=== PATIENT | female | born 2000 | race Caucasian/White ===

== ENCOUNTER → 2020-03-07 | Outpatient (CLI) | payer BC ==
--- NOTE | 2020-03-07 16:11 | Diagnostic Imaging Report ---
INDICATION: Postop surveillance, status post femoral osteotomy. COMPARISON: None available. TECHNIQUE: AP and lateral views of the left femur are obtained. FINDINGS: There is a long intramedullary nail with both proximal and distal interlocking screws in place. These fixate the transversely oriented osteotomy in the proximal one-third of the femoral diaphysis that is near-anatomic in alignment. There is a small amount of interosseous bridging periosteal callus formation present. The left hip and knee are grossly normal. IMPRESSION: Early healing of the femoral osteotomy site. Dictated by: Dictated on workstation # [id number]
== END ==
LOC: RAD 10:53
PROVIDERS: ATTEND Nurse Practitioner Family
DX: M21.851 Other specified acquired deformities of right thigh (principal)
CPT/HCPCS: 73552

== ENCOUNTER → 2020-04-18 | Outpatient (CLI) | payer BC ==
--- NOTE | 2020-04-18 12:55 | Diagnostic Imaging Report ---
INDICATION: Left femoral problems, pain. COMPARISON: Imaging from the same date as well as from March 07, 2020. TECHNIQUE: Two radiographs of the left hip dated April 18, 2020. FINDINGS: Intramedullary jovani is partially visualized transfixing a healing midshaft femoral fracture. No evidence of hardware complication within the [id number]. No new fracture or dislocation. No destructive osseous process. No suspicious radiopaque foreign body. IMPRESSION: No acute osseous abnormality. Intramedullary jovani is again identified partially visualized transfixing a healing left femoral fracture. Dictated by: Dictated on workstation # [id number]
--- NOTE | 2020-04-18 13:04 | Diagnostic Imaging Report ---
INDICATION: Osteotomy, post surgical followup. COMPARISON: Imaging from the same date as well as from 03/07/2020. TECHNIQUE: Four radiographs of the left femur dated 04/18/2020. FINDINGS: An intramedullary jovani is again noted transfixing a transversely oriented osteotomy involving the proximal to mid left femoral shaft. Alignment is stable from the prior examination. No evidence of hardware complication. Developing osseous bridging is noted. No new fracture or dislocation. No destructive osseous process. No suspicious radiopaque foreign body. IMPRESSION: Continued interval healing of previously noted internally fixated osteotomy site involving the left femur without evidence of hardware complication or new acute osseous abnormality. Dictated by: Dictated on workstation # [id number]
== END ==
LOC: RAD 11:44
PROVIDERS: ATTEND Family Medicine
DX: M79.652 Pain in left thigh (principal)
CPT/HCPCS: 73502; 73552

== ENCOUNTER → 2020-09-12 | Outpatient (CLI) | payer BC ==
--- NOTE | 2020-09-12 18:01 | Diagnostic Imaging Report ---
EXAMINATION: Left femur 2 or more views HISTORY: Post hip arthroscopy COMPARISON: 04/29/2020 FINDINGS: There is left femur intramedullary nail with a healed fracture of the midshaft of the left femur. Left hip joint space is normal. No new fracture is seen. IMPRESSION: 1. Healed fracture of the left midshaft femur with an intramedullary nail present. Dictated by: Dictated on workstation # [id number]
== END ==
LOC: RAD 10:02
PROVIDERS: ATTEND Orthopaedic Surgery Pediatric Orthopaedic Surgery
DX: Z47.2 Encounter for removal of internal fixation device (principal); Z98.890 Other specified postprocedural states
CPT/HCPCS: 73552

== ENCOUNTER 2020-10-22 22:08 | Emergency (ER) | payer BC ==
[~2020-10-22] VITALS: Ht 182 cm; Wt 66.0 kg
--- OUTSIDE RECORDS SUMMARY | 2020-10-22 22:12 | XMS REPORT | CCD ---
Author Belkys White Organization Shanell Brizuela MD, [facility] Address [facility] [place] [address] Phone Care Team Providers Care Title Agent Name Role Phone Shanell Brizuela PP Unavailable CCM Unavailable Summary Purpose Interface Exchange Insurance Providers Payer name Policy type / Coverage type Covered libertarian ID Effective Begin Date Effective End Date Blue Cross Blue [facility] Blue Cross/Blue [facility] [id number] Unknown Unknown Family history Father Diagnosis Age At Onset No Known Diseases N/A Mother Diagnosis Age At Onset No Known Diseases N/A Social History Social History Element Codes Description Effective Dates Marital status Unknown Single 03/07/2020 Employment Unknown Student 03/07/[address]: 153489995 Never smoker 03/07/[address]: 811513040 Never drinks alcohol 2020 Allergies, Adverse Reactions, Alerts Substance Reaction Codes Entered Date Inactivated Date Status amoxicillin Unknown 03/07/2020 No Inactive Date Active * OTHER REACTION - SEE ANSWER BOX Oxycodone- rash Unknown 02/11 No Inactive Date Active Problems Condition Codes Effective Dates Condition Status Acne vulgaris ICD-10: L70.0 ICD-9: 706.1 08/24/2020 Active Dizziness ICD-10: R42 ICD-9: 780.4 07/03/2020 Active Encounter for general adult medical examination withou t abnormal findings ICD- 10: Z00.00 ICD-9: V70.0 07/03/2020 Active Menorrhagia with irregular cycle ICD-10: N92.1 ICD-9: 626.2 03/07/2020 Active Left hip pain ICD-10: M25.552 ICD-9: 719.45 03/07/2020 Active S/P hip arthroscopy ICD-10: Z98.890 ICD-9: V45.89 03/07/2020 Active Right hip pain ICD-10: M25.551 ICD-9: 719.45 03/07/2020 Active Medications Medication Codes Instructions Start Date Stop Date Status Fill Instructions clindamycin 1 % topical gel RxNorm: 489759 Apply 1 Appl ication Topical two times a day 08/24/2020 02/19/2021 Active doxycycline hyclate 100 mg tablet RxNorm: 5007228 Take 1 Tablet(s) Oral two times a day 08/24/2020 09/22/2020 Active Ativan 0.5 mg tablet RxNorm: 757512 1 Tablet(s) Oral as directe d for MRI 04/28/2020 04/29/2020 Inactive Loestrin Fe 1/20 (28-Day) 1 mg-20 mcg (21)/75 mg (7) tablet RxNorm: 5366485 1 Tablet(s) Oral every day 03/20/2020 05/14/2021 Active Loestrin Fe 1/20 (28-Day) 1 mg-20 mcg (21)/75 mg (7) tablet RxNorm: 1466822 1 Tablet(s) Oral every day 03/07/2020 03/19/2020 Inactive Medication Administered No Medication Administered data Immunizations No Immunization data Results Observation Observation Code Item Item Code Result Date [facility] Tsh Ord6 TSH (3rd IS) 1.40 uIU/mL 07/03/2020 Unkn own Comp Metabolic Pos426 NA 139 mEq/L 07/03/2020 Unkn own Comp Metabolic Ptg071 K 4.0 mEq/L 07/03/2020 Unkn own Comp Metabolic Ubp851 CL 104 mEq/L 07/03/2020 Unkn own Comp Metabolic Krw418 CO2 30.0 mEq/L 07/03/2020 Unk nown Comp Metabolic Ugy179 ANION GAP 9 07/03/2020 Unkn own Comp Metabolic Wog445 GLUCOSE 75 mg/dL 07/03/2020 Unkn own Comp Metabolic Mmv694 Creat 0.7 mg/dL 07/03/2020 Unkn own Comp Metabolic Dan800 eGFR 112 ml/min/1.73m2 021 Unknown Comp Metabolic Pwn921 BUN 16 mg/dL 07/03/2020 Unkn own Comp Metabolic Clz712 B/C Ratio 22.5 Ratio 07/03/2020 Unk nown Comp Metabolic Pes585 CALCIUM 9.9 mg/dL 07/03/2020 Unkn own Comp Metabolic Ile978 ALK PHOS 91 U/L 07/03/2020 Unkn own Comp Metabolic Ldv224 AST(SGOT) 18 U/L 07/03/2020 Unkn own Comp Metabolic Ctf078 ALT(SGPT) 18 U/L 07/03/2020 Unkn own Comp Metabolic Ilz867 BILI T 0.6 mg/dL 07/03/2020 Unkn own Comp Metabolic Yyv747 ALBUMIN 4.9 g/dL 07/03/2020 Unkn own Comp Metabolic Pas602 TPRO 7.4 g/dL 07/03/2020 Unkn own Comp Metabolic Fpa067 GLOB 2.5 g/dL 07/03/2020 Unkn own Comp Metabolic Dtt802 A/G Ratio 1.9 Ratio 07/03/2020 Unkn own Comp Metabolic Ary506 Osmo 277 mOsmo 07/03/2020 Unkn own Cbc With Differential Ord2 WBC 6.55 K/ul 07/04/19 21 Unknown Cbc With Differential Ord2 RBC 4.72 M/ul 07/04/19 21 Unknown Cbc With Differential Ord2 HGB 14.5 g/dl 07/04/19 21 Unknown Cbc With Differential Ord2 Neut% 61.4 % 07/04/19 21 Unknown Cbc With Differential Ord2 HCT 45.2 % 07/04/19 21 Unknown Cbc With Differential Ord2 Lymph% 23.4 % 07/04/19 21 Unknown Cbc With Differential Ord2 MCV 95.8 fl 07/04/19 21 Unknown Cbc With Differential Ord2 MCH 30.7 pg 07/04/19 21 Unknown Cbc With Differential Ord2 Emmons% 11.5 % 07/04/19 21 Unknown Cbc With Differential Ord2 Eos% 3.1 % 07/04/19 21 Unknown Cbc With Differential Ord2 MCHC 32.1 pg 07/04/19 21 Unknown Cbc With Differential Ord2 PLT 295 K/ul 07/04/19 21 Unknown Cbc With Differential Ord2 Baso% 0.6 % 07/04/19 21 Unknown Cbc With Differential Ord2 RDW 13.5 % 07/04/19 21 Unknown Cbc With Differential Ord2 Neut ABS# 4.03 K/ul 07/04/19 21 Unknown Cbc With Differential Ord2 Lymph ABS# 1.53 K/ul 021 Unknown Cbc With Differential Ord2 Emmons ABS# 0.8 K/ul 07/04/19 21 Unknown Cbc With Differential Ord2 Eos ABS# 0.2 K/ul 07/04/19 21 Unknown Cbc With Differential Ord2 Baso ABS# 0.0 K/ul 07/04/19 21 Unknown Magnesium Ord90 Mag 2.0 mg/dL 07/03/2020 Unknown Procedures No Procedures data Vital Signs Date Vital 08/24/2020 Blood Pressure 1: 122/68 Code: 8480-6 BMI: 20.4 Code: 73525-4 Heart Rate 1: 70 bpm Height: 5'11" Code: 8302-2 SpO2: 98% Temperature: 36.3 (C) / 97.3 (F) Weight: 146 lbs Code: 35181-1 07/03/2020 Blood Pressure 1: 102/56 Code: 8480-6 BMI: 20.2 Code: 01587-5 Heart Rate 1: 74 bpm Height: 5'11" Code: 8302-2 SpO2: 99% Temperature: 36.3 (C) / 97.3 (F) Weight: 145 lbs Code: 97181-0 04/18/2020 Blood Pressure 1: 114/66 Code: 8480-6 Heart Rate 1: 82 bpm Height: 5'11" Code: 8302-2 Respiratory Rate: 18 bpm SpO2: 98% Temperature: 36 .3 (C) / 97.3 (F) Weight: Code: 06218-3 03/07/2020 Blood Pressure 1: 110/70 Code: 8480-6 BMI: 18.7 Code: 27245-3 Heart Rate 1: 87 bpm Height: 5'11" Code: 8302-2 SpO2: 98% Temperature: 36.9 (C) / 98.4 (F) Weight: 134 lbs Code: 95255-5 Functional Status No Functional Status data Reason For Visit Reason For Visit Effective Dates Notes acne vulgaris 08/24/2020 dizziness 07/03/2020 menstrual irregularity 04/18/2020 menstrual irregularity 03/07/2020 Encounters Encounter Performer Location Codes Date () EST. PATIENT, LEVEL III Diagnosis: Acne vulgaris[ICD10: L70.0] Marylu Brizuela [facility] CPT-4: 41365 08/24/2020 ([id number]) PREV VISIT EST AGE 18-39 Diagnosis: Encounter for general adult medical examination without abnormal findings[ICD10: Z00.00] [facility] CPT-4: 51370 07/03/2020 ([id number]) [id number] EST. PATIENT, LEVEL III Diagnosis: Left hip pain[ICD10: M25.552] Diagnosis: S/P hip arthroscopy[ICD10: Z98.890] [facility] CPT-4: 48384 04/18/2020 ([id number]) OFFICE VISIT, NEW - LEVEL 3 Diagnosis: S/P hip arthroscopy[ICD10: Z98.890] Diagnosis: Menorrhagia with irregular cycle[ICD10: N92.1] Diagnosis: Left hip pain[ICD10: M25.552] Diagnosis: Right hip pain[ICD10: M25.551] Marylu charles MD, [facility] CPT-4: 50957 03/07/2020 Plan of Care Planned Activity Notes Codes Status Date Visit Plan: Acne - discussed need for fa cial cleansing at least twice daily - avoid drying out skin, but need to clean off excessive oil and debris from skin, also recommended frequent pillow case changes, need to start on oral antibiotics as directed and call if any symptoms of GI upset or other concerns once on antibiotics. 08/24/2020 Patient Education: Patient Medication Summary Completed 08/24/2020 Visit Plan: Well Adult - pt was counsele d about diet, exercise, and encouraged to follow a heart healthy diet and increase activity level. The patient was instructed to RTC yearly for well adult exams and PRN for acute illnesses. The pt was also instructed to have yearly labs for check of cholesterol, thyroid, chem panel, CBC, and renal functioning. Pt has dizziness with movement from lying to sitting or sitting to standing - advised as follows: pepcid 20mg twice daily x 2 weeks 32 ounces of gatorade or powerade daily + at least another 60 ounces of water a day 07/03/2020 Appointment: Shanell Brizuela WPtel: [address] [place], [place] [phone] (15 min) Moderate 07/03/2020 Patient Education: Patient Medication Summary Completed 07/03/2020 Visit Plan: Left Hip Surgery Follow up- Left Hip Xray, send results to Dr. Ashby. Plan for right hip arthroscopy in 6 months. Continues physical therapy for 6 months at [facility]. Pt to use crutches until able to tolerate bearing weight on the left hip. Menorrhagia w/irregular cycles- improved with oral control. 04/18/2020 Patient Education: Patient Medication Summary Completed 04/18/2020 Visit Plan: Left Hip Surgery Follow up- Left Hip Xray, send results to Dr. Ashby. Plan for right hip arthroscopy in 6 months. Continues physical therapy for 6 months at [facility]. Pt to use crutches until able to tolerate bearing weight on the left hip. Menorrhagia w/irregular cycles- Start Loestrin Fe. Education provided on taking control at the same time each day, if dose missed, take as soon as remembers, if not remembered until next day, then take 2 pills. Pt denies being sexual active or chance of . Discussed preventative health and well woman pelvic exams with routine Paps recommendatio ns starting at age 21. 03/07/2020 Appointment: Marylu Guardado WPtel: [address] [place], [place] [phone] [place] New Patient 03/07/2020 Patient Education: Patient Medication Summary Completed 03/07/2020 Care Plan: X-RAY EXAM OF HIP LOINC : 247 62-7 Pending 03/07/2020 Instructions Comment . Acne - discussed need for facial clean sing at least twice daily - avoid drying out skin, but need to clean off excessive oil and debris from skin, also recommended frequent pillow case changes, need to start on oral antibiotics as directed and call if any symptoms of GI upset or other concerns once on antibiotics. pepcid 20mg twice daily x 2 weeks 32 ounces of gatorade or powerade daily + at least another 60 ounces of water a day . Well Adult - pt was counseled about di et, exercise, and encouraged to follow a heart healthy diet and increase activity level. The patient was instructed to RTC yearly for well adult exams and PRN for acute illnesses. The pt was also instructed to have yearly labs for check of cholesterol, thyroid, chem panel, CBC, and renal functioning. Pt has dizziness with movement from lying to sitting or sitting to standing - advised as follows: pepcid 20mg twice daily x 2 weeks 32 ounces of gatorade or powerade daily + at least another 60 ounces of water a day Left Hip Xray Today. Results to be sent to Dr. Ashby in [place]. Left Hip Surgery Follow up- Left Hip Xray, send results to Dr. Ashby. Plan for right hip arthroscopy in 6 months. Continues physical therapy for 6 months at [facility]. Pt to use crutches until able to tolerate bearing weight on the left hip. Menorrhagia w/irregular cycles- improved with oral control. Left Hip Xray Today. Results to be sent to Dr. Ashby in [place] Start Loestrin Fe Control. Take daily at the same time. If misses a dose, take as soon as remembers. If misses a dose and do not remember until the next day, take 2 doses. . Left Hip Surgery Follow up- Left Hip X ray, send results to Dr. Ashby. Plan for right hip arthroscopy in 6 months. Continues physical therapy for 6 months at [facility]. Pt to use crutches until able to tolerate bearing weight on the left hip. Menorrhagia w/irregular cycles- Start Loestrin Fe. Education provided on taking control at the same time each day, if dose missed, take as soon as remembers, if not remembered until next day, then take 2 pills. Pt denies being sexual active or chance of . Discussed preventative health and well woman pelvic exams with routine Paps recommendations starting at age 21. Medical Equipment No Medical Equipment data Health Concerns Section Health Concerns data not found Goals Section Goals data not found Interventions Section Interventions data not found Health Status Evaluations/Outcomes Section Health Status Evaluations/Outcomes data not found Advance Directives No Advance Directive data
[2020-10-22] MEDS ORDERED: LORazepam INJ 2 MG/ML (ATIVAN) VIAL ONE (22:20)
[2020-10-22 22:29] LABS: BASOPHILS # (AUTO) 0.1 10^3/uL (0.0-0.1); BASOPHILS % (AUTO) 1 % (0-10); EOSINOPHILS # (AUTO) 0.1 10^3/uL (0.0-0.3); EOSINOPHILS % (AUTO) 2 % (0-10); HEMATOCRIT 47 % (35-52); HEMOGLOBIN 15.7 g/dL (11.5-16.0); LYMPHOCYTES # (AUTO) 3.7 10^3/uL (1.0-4.0); LYMPHOCYTES % (AUTO) 41 % (12-44); MEAN CORPUSCULAR HEMOGLOBIN 30 pg (25-34); MEAN CORPUSCULAR HGB CONC 34 g/dL (32-36); MEAN CORPUSCULAR VOLUME 90 fL (80-99); MEAN PLATELET VOLUME 9.5 fL (9.0-12.2); MONOCYTES # (AUTO) 0.7 10^3/uL (0.0-1.0); MONOCYTES % (AUTO) 7 % (0-12); NEUTROPHILS # (AUTO) 4.5 10^3/uL (1.8-7.8); NEUTROPHILS % (AUTO) 49 % (42-75); PLATELET COUNT 348 10^3/uL (130-400); WHITE BLOOD COUNT 9.1 10^3/uL (4.3-11.0)
--- NOTE | 2020-10-22 22:29 | ED Psychosocial ---
General Chief Complaint: Psych/Social Disorder Stated Complaint: SOA Source: patient Exam Limitations: no limitations History of Present Illness Date Seen by Provider: Oct 22, 2020 Time Seen by Provider: 22:25 Initial Comments To ER by POV with c/o panic attack. This began about 1 hour ago. No fever no chills, no nausea no vomiting. She was sitting on the couch with her significant other when she suddenly felt cold and then began hyperventilating. She states that this has been happening with increasing frequently lately. 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 She takes no medications. Timing/Duration: just prior to arrival Severity: moderate Associated Symptoms: anxiety Allergies and Home Medications Allergies Coded Allergies: amoxicillin (Verified Allergy, Unknown, 10/22/20) oxycodone (Verified Allergy, Unknown, 10/22/20) Patient Home Medication List Home Medication List Reviewed: Yes Review of Systems Constitutional: see HPI EENTM: see HPI Respiratory: no symptoms reported Cardiovascular: no symptoms reported Genitourinary: no symptoms reported Musculoskeletal: no symptoms reported Skin: no symptoms reported Psychiatric/Neurological: No Symptoms Reported Physical Exam Capillary Refill : Height, Weight, BMI Height: '" Weight: lbs. oz. kg; BMI Method: General Appearance: WD/WN, no apparent distress, thin, other (Alert. Hyperventilating. Oxygen saturation 100%, respiratory rate upwards of 40. Alert and oriented. Lung sounds are clear.) Neck: non-tender, full range of motion Respiratory: no respiratory distress, no accessory muscle use Cardiovascular: no murmur, tachycardia Neurologic/Psychiatric: alert, normal mood/affect, oriented x 3 Appearance/Memory: appropriate appearance, appropriate insight, neat Behavior/Eye Contact: cooperative, good eye contact Thoughts/Hallucinations: normal thought pattern, no apparent hallucination Skin: normal color, warm/dry Progress/Results/Core Measures Results/Orders Lab Results Laboratory Tests Test 10/22/20 22:20 Range/Units My Orders Orders - LIANA VEGA APRN Lorazepam Injection (Ativan Injection) (10/22/20 22:30) Cbc With Automated Diff (10/22/20 22:23) Comprehensive Metabolic Panel (10/22/20 22:23) Alcohol (10/22/20 22:23) Ed Iv/Invasive Line Start (10/22/20 22:23) Fibrin Degradation Products (10/22/20 22:35) Medications Given in ED Current Medications Medications Dose Ordered Sig/[place] Route Start Time Stop Time Status Last Admin Dose Admin Lorazepam 1 mg ONCE ONCE IVP 10/22/20 22:30 10/22/20 22:31 DC 10/22/20 22:26 1 MG Departure Communication (Admissions) 2027-Very pleasant. Does not appear intoxicated. Does appear very anxious. We will check some labs to rule out other causes of tachypnea and hyperventilation. She complains of tingling to both hands and feet. 1 mg of lorazepam IV ordered. 2235-after 1 mg of IV lorazepam her heart rate and respiratory rate have fallen to normal. She is now talking on the phone and states that she feels much better. She reports that she would be interested in starting some medicine for anxiety but that her parents do not want her to take anything because they do not think she is being serious about it. I discussed with her that I do think she would benefit from some antianxiety medication like Lexapro. She is agreeable to trying this. Impression Primary Impression: Anxiety Disposition: HOME, SELF-CARE Condition: Stable Departure-Patient Inst. Decision time for Depature: 22:28 Referrals: YONI BRISENO MD (PCP/Family) Primary Care Physician Patient Instructions: Panic Disorder (DC) Scripts Escitalopram Oxalate (Lexapro) 10 Mg Tablet 10 MG PO DAILY, #30 TAB 1 Refill Prov: LIANA VEGA APRN 10/22/20 Work/School Note: Work Release Form Date Seen in the Emergency Department: Oct 22, 2020 Return to Work: Oct 24, 2020 LIANA VEGA APRN Oct 22, 2020 22:29
[2020-10-22] MEDS ORDERED: LORazepam INJ 2 MG/ML (ATIVAN) VIAL IVP ONE (22:30)
[2020-10-22] MEDS ORDERED: RX-LORAZEPAM (ATIVAN) 0.5 MG TAB PPK#4 PO STA (22:38)
[2020-10-22] MEDS ORDERED: ESCI10TA PO (22:38)
[2020-10-22 22:43] LABS: ALBUMIN 4.9 GM/DL (3.2-4.5); CHLORIDE 109 MMOL/L (98-107); POTASSIUM 3.9 MMOL/L (3.6-5.0); SODIUM 142 MMOL/L (135-145)
[2020-10-22 22:46] LABS: GLUCOSE 109 MG/DL (70-105); TOTAL PROTEIN 8.5 GM/DL (6.4-8.2)
[2020-10-22 22:47] LABS: BILIRUBIN,TOTAL 0.8 MG/DL (0.1-1.0); CARBON DIOXIDE 14 MMOL/L (21-32)
[2020-10-22 22:49] LABS: ALKALINE PHOSPHATASE 71 U/L (40-136); GFR ESTIMATED 91
[2020-10-22 22:50] LABS: BUN/CREATININE RATIO 15
[2020-10-22 22:52] LABS: ALANINE AMINOTRANSFERASE 23 U/L (0-55)
[2020-10-22 22:57] VITALS: BP 110/70
== END 2020-10-22 22:57 | disposition home or self-care (01) ==
LOC: EDUNIT# 22:08 → ER 22:09
DX: F41.9 Anxiety disorder, unspecified (principal); R06.4 Hyperventilation
CPT/HCPCS: 80053; 85025; 85379; 99284; G0480; 36415; 80320